=== PATIENT | male | born 1945 ===

== ENCOUNTER → 2019-09-03 | Outpatient (CLI) | payer OTHER | END | disposition home or self-care (01) | LOC: LAB 12:49 → LAB SHORT 12:49 | DX: H92.13 Otorrhea, bilateral (principal); L29.8 Other pruritus | CPT/HCPCS: 87070; 87077; 87186; 87205 ==

== ENCOUNTER 2022-12-12 20:18 | Observation (INO) | payer OTHER ==
[~2022-12-12] VITALS: Ht 177.8 cm; Wt 108.0 kg
[2022-12-12 21:54] LABS: BASOPHILS ABSOLUTE AUTO 0.06 K/mm3 (0.00-0.23); BASOPHILS PERCENT AUTO 1 % (0-2); EOSINOPHILS ABSOLUTE AUTO 0.18 K/mm3 (0.00-0.68); EOSINOPHILS PERCENT AUTO 2 % (0-6); Hematocrit 43.6 % (37.0-53.0); IMMATURE GRAN ABSOLUTE AUTO 0.05 K/mm3 (0.00-0.10); IMMATURE GRAN PERCENT AUTO 1 % (0-1); LYMPHOCYTES ABSOLUTE AUTO 1.66 K/mm3 (0.84-5.20); LYMPHOCYTES PERCENT AUTO 15 % (21-46); MONOCYTES PERCENT AUTO 5 % (4-13); Mean Corpuscular HGB 30.4 pg (26.0-34.0); Mean Corpuscular HGB Conc 34.4 g/dL (31.5-36.5); Mean Corpuscular Volume 88 fL (80-100); Mean Platelet Volume 9.3 fL (9.1-12.4); NEUTROPHILS PERCENT AUTO 77 % (41-73); Platelet Count 189 K/mm3 (150-400); RDW Coefficient Variation 12.8 % (11.7-14.2); RDW Standard Deviation 41.5 fL (35.1-46.3); Red Blood Cell Count 4.94 M/mm3 (4.30-5.90); White Blood Cell Count 10.85 K/mm3 (4.00-11.30)
[2022-12-12 22:16] LABS: Albumin/Globulin Ratio 1.3 (0.8-1.8); Bilirubin, Total 0.6 mg/dL (0.1-1.0); Calcium, Blood 9.4 mg/dL (8.5-10.1); Creatinine, Blood 1.47 mg/dL (0.60-1.20); Globulin, Blood 3.1 g/dL (2.2-4.0); Total Protein, Blood 7.1 g/dL (6.4-8.2)
[2022-12-13] VITALS (15 sets, daily range): BP systolic 108–195; BP diastolic 50–92
[2022-12-13 04:35] LABS: Appearance, Urine Clear (Clear); Bilirubin, Urine Neg (Neg); Blood, Urine 4+ (Neg); Color, Urine Yellow (P-Yellow); Glucose Qualitative, Urine Neg (Neg); Ketones, Urine Neg (Neg); Leukocyte Esterase, Urine Neg (Neg); Nitrite, Urine Neg (Neg); Protein, Urine 1+ (Neg); Source, Urine Clean Catch; Urobilinogen, Urine NORM (Normal)
[2022-12-13 04:42] LABS: Bacteria Rare /hpf; Mucus Light (0-Heavy); Squamous Epithelial Cells Not Seen /hpf (Few); White Blood Cells, Urine 0-2 /hpf (0-5)
[2022-12-13] MEDS ORDERED: LISI20 PO (16:58)
[2022-12-13] MEDS ORDERED: METO100ER PO (17:00)
[2022-12-13] MEDS ORDERED: DOXA2 PO (17:01)
--- NOTE | 2022-12-13 19:42 | NUR ---
SHIFT SUMMARY POD0 LAP CHRISTIANO, A/OX4, VSS, TOLERATING PO, PAIN MANAGED PER EMAR, ABLE TO CONFIRM HOME MEDS AFTER HIS WAS ABLE TO BRING IN HIS HOME MEDICATIONS X3, HOME CPAP SET UP IN HIS ROOM IN WHICH HE REPORTS THAT HE DOES NOT NEED ANY ASSISTANCE IN SETTING IT UP. NO ACUTE EVENTS THIS SHIFT, CALL LIGHT IN REACH, REPORT GIVEN TO JOSIE IVAN.
[2022-12-14 03:29] VITALS: BP 127/61
--- NOTE | 2022-12-14 04:24 | NUR ---
SHIFT SUMMARY POD1 LAP CHRISTIANO, X5 LAP SITES ARE C/D/I. CLOSED WITH STERI STRIPS, MINIMAL TO NO DRAINAGE NOTED. VSS. PT TOLLERATING PO INTAKE W/O N/V. PT MEDICATED FOR PAIN WITH 2 NORCO T/O THE NIGHT WITH GOOD RESULTS. TOLLERTING PO INTAKE W/O N/V. PT OOB ONCE TO TRY TO VOID, BLADDER SCAN SHOWED 305 MLS AT 0300. PT PLAN TO GET UP BEFORE 0630 TO TRY AGAIN. PT REPORTS NO URGE TO VOID AT THIS TIME. IV FLUIDS INFUSING. PT ENCOURAGED T/O THE NIGHT TO AMBULATE TO ASSIST WITH GAS PAINS, PT APPEARED TO BE TOO TIRED TO PARTICIPATE AT THIS TIME. PLAN TO POSSIBLY D/C HOME TODAY NO IGNITION SOURCE NOTED
[2022-12-14 06:32] LABS: BASOPHILS ABSOLUTE AUTO 0.05 K/mm3 (0.00-0.23); BASOPHILS PERCENT AUTO 1 % (0-2); EOSINOPHILS PERCENT AUTO 1 % (0-6); Hematocrit 40.5 % (37.0-53.0); Hemoglobin 14.2 g/dL (13.5-17.5); IMMATURE GRAN ABSOLUTE AUTO 0.09 K/mm3 (0.00-0.10); IMMATURE GRAN PERCENT AUTO 1 % (0-1); LYMPHOCYTES ABSOLUTE AUTO 1.37 K/mm3 (0.84-5.20); LYMPHOCYTES PERCENT AUTO 14 % (21-46); MONOCYTES ABSOLUTE AUTO 0.79 K/mm3 (0.16-1.47); MONOCYTES PERCENT AUTO 8 % (4-13); Mean Corpuscular HGB 30.6 pg (26.0-34.0); Mean Corpuscular HGB Conc 35.1 g/dL (31.5-36.5); Mean Corpuscular Volume 87 fL (80-100); NEUTROPHILS ABSOLUTE AUTO 7.32 K/mm3 (1.96-9.15); NEUTROPHILS PERCENT AUTO 75 % (41-73); NRBC ABSOLUTE 0.02 K/mm3 (0.00-0.02); NRBC Auto 0.2 /100 WBC (0.0-0.2); RDW Coefficient Variation 13.2 % (11.7-14.2); RDW Standard Deviation 41.8 fL (35.1-46.3); Red Blood Cell Count 4.64 M/mm3 (4.30-5.90); White Blood Cell Count 9.72 K/mm3 (4.00-11.30)
[2022-12-14 06:34] LABS: Albumin, Blood 3.5 g/dL (3.4-5.0); Albumin/Globulin Ratio 1.3 (0.8-1.8); Bilirubin, Total 0.5 mg/dL (0.1-1.0); Bun/Creatinine Ratio 20.3 (12.0-20.0); Calcium, Blood 8.8 mg/dL (8.5-10.1); Creatinine, Blood 1.53 mg/dL (0.60-1.20); Globulin, Blood 2.7 g/dL (2.2-4.0); Potassium, Blood 4.7 mmol/L (3.5-5.5); Total Protein, Blood 6.2 g/dL (6.4-8.2)
[2022-12-14 07:31] LABS: Platelet Count 152 K/mm3 (150-400)
[2022-12-14 08:06] VITALS: BP 150/57
[2022-12-14] MEDS ORDERED: Norco 10-325 T1 EACH PO (12:33)
== END 2022-12-14 13:33 | disposition home or self-care (01) ==
LOC: ER 20:18 → SURS 20:19 → MEDS 20:19 → SURS 12-13 09:56
PROVIDERS: Emergency Medicine; ADMIT Internal Medicine
DX: K80.00 Calculus of gallbladder with acute cholecystitis without obstruction (principal); K82.A1 Gangrene of gallbladder in cholecystitis; I10 Essential (primary) hypertension; Z87.891 Personal history of nicotine dependence; Z79.899 Other long term (current) drug therapy
CPT/HCPCS: 36415; 71046; 74177; 76705; 80053; 81001; 83690; 84484; 85025; 87086; 88304; 93005; 93010; 94660; 94762; 96365; 96372; 96375; 96376; 99285-25; A9270; G0378; J0690; J0694; J1100; J1170; J1650; J1885; J2250; J2270; J2405; J2704; J2710; J3010; J7030; J7120; Q9967

== ENCOUNTER 2024-05-16 19:22 | Emergency (ER) | payer OTHER ==
[~2024-05-16] VITALS: Ht 177.8 cm; Wt 102.1 kg
[~2024-05-16 19:22] MED LIST: DOXA2 PO; LISI20 PO; METO100ER PO; Norco 10-325 T1 EACH PO
[2024-05-16 21:37] VITALS: BP 128/57
== END 2024-05-16 21:37 | disposition home or self-care (01) ==
LOC: ER 19:22
DX: D49.6 Neoplasm of unspecified behavior of brain (principal); S00.81XA Abrasion of other part of head, initial encounter; Z79.899 Other long term (current) drug therapy; W01.0XXA Fall on same level from slipping, tripping and stumbling without subsequent striking against object, initial encounter
CPT/HCPCS: 70450; 72125; 99284-25